=== PATIENT | female | born 2000 | race African-American/Black ===

== ENCOUNTER 2024-06-19 18:41 | Emergency (ER) | payer MEDICAID ==
[~2024-06-19] VITALS: Ht 167.6 cm; Wt 68.2 kg
[2024-06-19 18:52] VITALS: BP 90/70; PULSE 85; RESP 18; TEMP 98.1; O2SAT 98
[2024-06-19] MEDS ORDERED: IBUP-1492 PO (21:54)
== END 2024-06-19 22:15 | disposition home or self-care (01) ==
LOC: EMS 18:41
DX: M25.561 Pain in right knee (principal)
CPT/HCPCS: 29505; 99283